=== PATIENT | male | born 2000 | race African-American/Black ===

== ENCOUNTER 2021-05-25 09:01 | Emergency (ER) | payer OTHER ==
[~2021-05-25 09:01] MED LIST: BACTRIM DS TAB1 EACH PO
[2021-05-25 14:42] LABS: BASOPHIL 0.9 % (0-2); EOSINOPHIL 0 % (0-5); HCT 53.2 % (42.0-52.0); HGB 17.2 g/dl (13.2-18.0); LYMPHOCYTE 34.1 % (15-48); MCH 26.5 pg (25.0-31.0); MCHC 32.3 g/dL (32.0-36.0); MCV 82.1 fL (78.0-100.0); MPV 11.4 fL (6.0-9.5); NEUTROPHIL 47.6 % (41-80); NRBC 0; PLT 187 K/uL (150-400); RBC 6.48 M/uL (4.70-6.00); RDW 14.7 % (11.5-14.0); WBC 5.6 K/uL (4.0-10.5)
[2021-05-25 14:58] LABS: ALBUMIN 3.1 g/dL (3.4-5.0); BILIRUBIN - TOTAL 0.5 mg/dL (0.2-1.0); BUN/CREAT RATIO (CALC) 15.8 RATIO; CREATININE 0.95 mg/dL (0.67-1.17); GLOBULIN (CALCULATION) 3.9 g/dL; POTASSIUM 3.1 mmol/L (3.5-5.1)
[2021-05-25] MEDS ORDERED: AZITHROMYCIN250 MG PO (17:56)
[2021-05-25] MEDS ORDERED: MUCINEX DM ER1 EACH PO (17:56)
== END 2021-05-25 18:30 | disposition home or self-care (01) ==
LOC: FER 09:01
PROVIDERS: Physician Assistant
DX: U07.1 COVID-19 (principal); J12.82 Pneumonia due to coronavirus disease 2019; E87.6 Hypokalemia; J45.909 Unspecified asthma, uncomplicated; E11.9 Type 2 diabetes mellitus without complications; E66.9 Obesity, unspecified; Z88.8 Allergy status to other drugs, medicaments and biological substances; Z79.899 Other long term (current) drug therapy
CPT/HCPCS: 36415; 71046; 80053; 84145; 85025